=== PATIENT | male | born 1950 | race Caucasian/White ===

== ENCOUNTER → 2017-01-18 | Outpatient (CLI) | payer MEDICARE ==
[~2017-01-18] MED LIST: ASPI-621 PO; ATOR20TA9 PO; CARV3.122 PO; CLOP75TA PO; FURO-92 PO; HYDR-3307 PO; LISI5TAB7 PO; METO25TA91 PO; POTA10TA5 PO; POTA20TA14 PO; SPIR25TA PO; TICA90TA PO; TORS10TA4 PO; TORS20TA PO; WARF5TAB7 PO
== END | disposition home or self-care (01) ==
LOC: PETCFH 08:41
PROVIDERS: ATTEND Internal Medicine Cardiovascular Disease
DX: I49.3 Ventricular premature depolarization (principal); I25.10 Atherosclerotic heart disease of native coronary artery without angina pectoris
CPT/HCPCS: 78472; A9560

== ENCOUNTER 2017-02-16 06:07 | Inpatient (IN) | payer MEDICARE ==
[2017-02-15 08:38] LABS: HEMOGLOBIN 14.7 g/dL (13.7-18.0); WHITE BLOOD COUNT 7.3 x10^3/uL (3.4-10)
[2017-02-15 08:47] LABS: ASPARTATE AMINO TRANSFERASE 23 U/L (15-37); BLOOD UREA NITROGEN 24 mg/dL (7-18)
[2017-02-15 09:17] VITALS: BP 110/60
[~2017-02-16] VITALS: Ht 167.6 cm; Wt 74.0 kg
[~2017-02-16 06:07] MED LIST changes: +ASPI-650 PO; +FURO40TA6 PO; +METO25TA35 PO; +POTA20TA6 PO
[2017-02-16] MEDS ORDERED: SODIUM CHLORIDE 0.9% 1,000 ML IV SCH (06:32)
[2017-02-16] MEDS ORDERED: MIDAZOLAM 1 MG/ML, 5ML ONE (07:51)
[2017-02-16] MEDS ORDERED: FENTANYL PF 250 MCG/5ML ONE (07:51)
[2017-02-16] MEDS ORDERED: LIDOCAINE 2%, 20ML ONE (08:04)
[2017-02-16] MEDS ORDERED: HEPARIN 1,000 UNITS/ML, 10ML ONE (08:04)
[2017-02-16] MEDS ORDERED: PROTAMINE SULFATE 10 MG/ML, 5ML ONE (08:04)
[2017-02-16] MEDS ORDERED: ISOPROTERENOL 0.2MG/ML, 5ML ONE (08:35)
[2017-02-16] MEDS ORDERED: FENTANYL PF 100 MCG/2ML ONE (10:45)
[2017-02-16] MEDS ORDERED: ACETAMINOPHEN 325 MG TABLET PO PRN ×2 (11:00→11:30)
[2017-02-16] MEDS ORDERED: ZOLPIDEM 5MG TABLET PO PRN (11:00)
[2017-02-16] MEDS ORDERED: MIDAZOLAM 1 MG/ML, 2ML IV PRN (11:30)
[2017-02-16] MEDS ORDERED: PROMETHAZINE 25 MG/ML, 1ML IV PRN (11:30)
[2017-02-16] MEDS ORDERED: FENTANYL PF 100 MCG/2ML IV PRN (11:30)
[2017-02-16] MEDS ORDERED: ONDANSETRON 2MG/ML, 2ML IVPush PRN (11:30)
[2017-02-16] MEDS ORDERED: HYDROmorphone 1 MG/ML, 1ML IV PRN (11:30)
[2017-02-16] MEDS ORDERED: EPHEDRINE 50 MG/ML, 1ML IVPush PRN (11:30)
[2017-02-16] MEDS ORDERED: OXYcodone 5 MG/5 ML ORAL.SOL UDC PO PRN (11:30)
[2017-02-16] MEDS ORDERED: ACETAMINOPHEN 650 MG/20.3 ML UDC ONE (12:12)
[2017-02-16 13:12] VITALS: BP 108/77
[2017-02-16] MEDS ORDERED: PROPOFOL 10 MG/ML, 20ML ONE (16:55)
[2017-02-16] MEDS ORDERED: ROCURONIUM 10 MG/ML ONE (16:55)
[2017-02-16] MEDS ORDERED: ONDANSETRON 2MG/ML, 2ML ONE (16:55)
[2017-02-16] MEDS ORDERED: DEXAMETHASONE 4 MG/ML, 1ML ONE (16:55)
[2017-02-16 17:40] VITALS: BP 115/81
[2017-02-16] MEDS: SOTALOL 120MG TABLET PO SCH (17:53)
[2017-02-16 20:50] VITALS: BP 112/76
[2017-02-16] MEDS: ATORVASTATIN 20 MG TABLET PO SCH (20:54)
[2017-02-17 01:36] VITALS: BP 97/65
[2017-02-17] MEDS: SOTALOL 120MG TABLET PO SCH ×2 (06:22→17:40)
[2017-02-17 06:43] VITALS: BP 101/65
[2017-02-17] MEDS: ASPIRIN 325 MG TABLET EC PO SCH (08:20)
[2017-02-17] MEDS: POTASSIUM CHLORIDE 20 MEQ TAB.ER.PRT PO SCH (08:20)
[2017-02-17] MEDS: FUROSEMIDE 40 MG TABLET PO SCH (08:20)
[2017-02-17 13:21] VITALS: BP 105/71
[2017-02-17 19:20] VITALS: BP 94/62
[2017-02-17] MEDS: ATORVASTATIN 20 MG TABLET PO SCH (19:20)
[2017-02-18 02:20] VITALS: BP 112/74
[2017-02-18 05:08] LABS: BLOOD UREA NITROGEN 22 mg/dL (7-18)
[2017-02-18] MEDS: SOTALOL 120MG TABLET PO SCH (05:59)
[2017-02-18 07:50] VITALS: BP 104/69
[2017-02-18] MEDS: ASPIRIN 325 MG TABLET EC PO SCH (07:57)
[2017-02-18] MEDS: FUROSEMIDE 40 MG TABLET PO SCH (07:57)
[2017-02-18] MEDS: POTASSIUM CHLORIDE 20 MEQ TAB.ER.PRT PO SCH (07:58)
[2017-02-18] MEDS ORDERED: SOTA120T14 PO (10:01)
== END 2017-02-18 10:50 | disposition home or self-care (01) | DRG 274 ==
LOC: CACL 06:07 → ORIP 10:42 → 5SO 13:08 → OBSVTOIN 02-18 07:09 → DCLOUNGE 02-18 10:32
PROVIDERS: ADMIT Internal Medicine Cardiovascular Disease; ATTEND Internal Medicine Cardiovascular Disease
PROC: 4A02X4Z Measurement of Cardiac Electrical Activity, External Approach (ICD-10-PCS; 2017-02-16)
PROC: 02583ZZ Destruction of Conduction Mechanism, Percutaneous Approach (ICD-10-PCS; principal; 2017-02-16 08:00)
DX: I49.3 Ventricular premature depolarization (principal); I13.0 Hypertensive heart and chronic kidney disease with heart failure and stage 1 through stage 4 chronic kidney disease, or unspecified chronic kidney disease; I42.9 Cardiomyopathy, unspecified; I50.42 Chronic combined systolic (congestive) and diastolic (congestive) heart failure; E78.5 Hyperlipidemia, unspecified; N18.9 Chronic kidney disease, unspecified; Z87.891 Personal history of nicotine dependence
CPT/HCPCS: 36415; 71020; 80048; 80053; 85025; 85347; 85610; 85730; 93005; 93306; 93621; 93623; C1894; G0378; J1100; J1644; J2250; J2405; J2704; J2720; J3010; J3490; C1730; C2630; Q9967

== ENCOUNTER → 2017-03-15 | Outpatient (CLI) | payer MEDICARE ==
[~2017-03-15] MED LIST changes: +SOTA120T14 PO
== END | disposition home or self-care (01) ==
LOC: CVU 15:41
PROVIDERS: ATTEND Nurse Practitioner Family
DX: R10.31 Right lower quadrant pain (principal); I72.4 Aneurysm of artery of lower extremity; I10 Essential (primary) hypertension; E78.5 Hyperlipidemia, unspecified; Z98.890 Other specified postprocedural states
CPT/HCPCS: 93926

== ENCOUNTER → 2017-11-10 | Outpatient (CLI) | payer MEDICARE ==
[~2017-11-10] MED LIST changes: +WARF-36 PO; -WARF5TAB7 PO
== END | disposition home or self-care (01) ==
LOC: CVU 14:48
PROVIDERS: ATTEND Internal Medicine Cardiovascular Disease
DX: I08.0 Rheumatic disorders of both mitral and aortic valves (principal); I10 Essential (primary) hypertension; E78.5 Hyperlipidemia, unspecified; I25.2 Old myocardial infarction; I42.9 Cardiomyopathy, unspecified; Z87.891 Personal history of nicotine dependence; Z95.2 Presence of prosthetic heart valve
CPT/HCPCS: 93306

== ENCOUNTER → 2018-12-29 | Outpatient (CLI) | payer MEDICARE ==
[~2018-12-29] MED LIST changes: -ASPI-621 PO; +ASPI81TA45 PO; +ATOR20TA37 PO; -ATOR20TA9 PO
== END | disposition home or self-care (01) ==
LOC: CFH 09:35
PROVIDERS: ATTEND Internal Medicine Cardiovascular Disease
DX: I08.8 Other rheumatic multiple valve diseases (principal)
CPT/HCPCS: 93306

== ENCOUNTER → 2020-04-19 | Outpatient (CLI) | payer MEDICARE ==
[~2020-04-19] MED LIST changes: +HYDR-3246 PO; -HYDR-3307 PO
== END | disposition home or self-care (01) ==
LOC: CFH 09:54
PROVIDERS: ATTEND Internal Medicine Cardiovascular Disease
DX: I08.0 Rheumatic disorders of both mitral and aortic valves (principal); I11.9 Hypertensive heart disease without heart failure; I42.9 Cardiomyopathy, unspecified
CPT/HCPCS: 93306

== ENCOUNTER → 2020-05-15 | Outpatient (CLI) | payer MEDICARE | END | disposition home or self-care (01) | LOC: RAD 10:56 | PROVIDERS: ATTEND Internal Medicine Cardiovascular Disease | DX: I49.3 Ventricular premature depolarization (principal) | CPT/HCPCS: 78472; A9560 ==

== ENCOUNTER → 2020-05-15 | Outpatient (CLI) | payer MEDICARE, OTHER | END | disposition home or self-care (01) | LOC: EDSTATUS 05-08 10:45 → CFH 10:11 → EDSTATUS 10:15 | PROVIDERS: ATTEND Nurse Practitioner Primary Care | DX: Z12.2 Encounter for screening for malignant neoplasm of respiratory organs (principal); I25.10 Atherosclerotic heart disease of native coronary artery without angina pectoris; Z87.891 Personal history of nicotine dependence | CPT/HCPCS: G0297 ==

== ENCOUNTER → 2020-11-13 | Outpatient (CLI) | payer MEDICARE ==
[~2020-11-13] MED LIST changes: +ASPI-1026 PO; -ASPI-650 PO; -HYDR-3246 PO; +HYDR-3248 PO
[2020-11-13 07:41] LABS: BASOPHILS % (AUTO) 1 % (0-1); EOSINOPHILS % (AUTO) 6 % (1-7); LYMPHOCYTES % (AUTO) 28 % (22-44); MEAN CORPUSCULAR HEMOGLOBIN 31.3 pg (27.5-34.5); MEAN CORPUSCULAR HGB CONC 34.6 g/dL (33.2-36.2); MEAN PLATELET VOLUME 7.5 fL (7.4-10.4); MONOCYTES % (AUTO) 12 % (2-9); NEUTROPHILS % (AUTO) 53 % (42-75); PLATELET COUNT 190 x10^3/uL (130-400); RED BLOOD COUNT 4.86 x10^6/uL (4.38-5.82); RED CELL DISTRIBUTION WIDTH 13.7 % (9.4-14.8)
[2020-11-13 07:44] LABS: MD NO; MICROSCOPIC NOT IND
[2020-11-13 07:47] LABS: CALCIUM 9.3 mg/dL (8.5-10.1)
[2020-11-13 07:51] LABS: ALBUMIN 4.1 g/dL (3.4-5.0); CALCIUM 9.2 mg/dL (8.5-10.1); CREATININE 1.36 mg/dL (0.7-1.3)
[2020-11-13 07:59] LABS: TOTAL PROTEIN,URINE RANDOM < 5 mg/dL (0-12)
[2020-11-13 08:08] LABS: ANION GAP 4 mmol/L (5-15); CHLORIDE 105 mmol/L (98-107)
== END | disposition home or self-care (01) ==
LOC: LAB 07:15
PROVIDERS: ATTEND Internal Medicine Nephrology
DX: Z13.9 Encounter for screening, unspecified (principal); I12.9 Hypertensive chronic kidney disease with stage 1 through stage 4 chronic kidney disease, or unspecified chronic kidney disease; I25.5 Ischemic cardiomyopathy; I25.10 Atherosclerotic heart disease of native coronary artery without angina pectoris; E78.5 Hyperlipidemia, unspecified; E55.9 Vitamin D deficiency, unspecified; N18.30 Chronic kidney disease, stage 3 unspecified; Z79.899 Other long term (current) drug therapy
CPT/HCPCS: 36415; 80069; 81003; 82306; 82310; 82570; 83735; 83970; 84156; 84550; 85025